=== PATIENT | female | born 1995 | race African-American/Black ===

== ENCOUNTER 2023-07-05 10:52 | Emergency (ER) | payer OTHER ==
[~2023-07-05] VITALS: Ht 162.6 cm; Wt 59.0 kg
[2023-07-05 11:00] VITALS: O2SAT 100
[2023-07-05] MEDS ORDERED: P20 MT (11:10)
[2023-07-05] MEDS ORDERED: CETI10TA11 MT (11:10)
[2023-07-05] MEDS ORDERED: HYDR453.4 TP (11:10)
[2023-07-05] MEDS ORDERED: FAMOTIDINE 20MG TABLET PO ONE (11:15)
[2023-07-05] MEDS ORDERED: DIPHENHYDRAMINE 50MG CAPSULE PO ONE (11:15)
[2023-07-05] MEDS ORDERED: PREDNISONE 20MG TABLET PO ONE (11:15)
[2023-07-05 11:56] VITALS: BP 125/100; PULSE 57; RESP 16; TEMP 98.1
== END 2023-07-05 11:58 | disposition home or self-care (01) ==
LOC: ER 10:52
DX: T78.1XXA Other adverse food reactions, not elsewhere classified, initial encounter (principal); Z91.018 Allergy to other foods; X58.XXXA Exposure to other specified factors, initial encounter
CPT/HCPCS: 99284; Q0163; J7512